=== PATIENT | female | born 1935 | race Caucasian/White ===

== ENCOUNTER → 2016-06-26 | Day surgery (SDC) | payer MEDICARE ==
[~2016-06-26] MED LIST: ACETAMINOPHEN/HYDROcodone 325 MG/5 MG TAB ONE; BIOT5000 PO; FOLI1 PO; IOHEXOL 180 MG/ML 20 ML VIAL (for RAD DIAG) ONE; IPRA0.03; KETOROLAC TROMETHAMINE 30 MG/ML (IVP) VIAL IV PUSH ONE; LACTATED RINGER'S 1000 ML INJ 1,000 ML ONE; LEVO88TA2 PO; METO25TA6 PO; MIDAZOLAM HCL 2 MG/2 ML VIAL ONE; NEXI40CA PO; NITR.4 SL; PROPOFOL 200 MG/20 ML AMP IV ONE; VITA200017 PO; ceFAZolin 2 GM PREMIX 50 ML ONE
--- NOTE | 2016-06-26 10:19 | TN ---
cc: REKHA LEWIS M.D. DATE OF SURGERY: 06/26/2016 PREOPERATIVE DIAGNOSIS Compression fracture T6, subacute. POSTOPERATIVE DIAGNOSIS Compression fracture T6, subacute. PROCEDURE Kyphoplasty T6 and placement of a bone cement spacer. SURGEON Rekha Lewis MD ANESTHESIA TIVA. BLOOD LOSS Minimal. INDICATION This is an 80-year-old female with history of previous kyphoplasty at T7 and did well. The patient began developing increasing pain in early May and studies showed evidence of a compression deformity developing at the T6 level with mild compression. The patient recently was seen having increasing pain despite 4 weeks of conservative care. She presents now for surgical treatment. PROCEDURE The patient was brought to the operating room and given limited sedation. She was rolled to prone position on the radiolucent table. All pressure points were protected. The back was scrubbed with alcohol followed by Hibiclens, followed by Chloraprep and draped sterilely. Antibiotics were given within a 1 hour time window and a time-out was done. AP and lateral radiographic images were used identifying the T6 level and compared to preoperative studies. A time-out was done, antibiotics were given within 1 hour time window. A single balloon approach was utilized on left side. Local anesthesia was utilized followed by a small incision and an awl placed down to the pedicle and into the vertebral body at oblique angle. A 15 mm Kyphon balloon was placed centrally within the vertebral body. This was elevated. On the back table methylmethacrylate was mixed. After approximately 11 minutes the bone cement was injected. We had no extravasation, overall very good vertebral body fill. The cement was allowed to harden, the tubes were removed. Intraoperative x-rays were obtained. The wound was irrigated, anesthetized and closed with 4-0 Vicryl followed by Dermabond. The patient was awoken and taken to the recovery room in satisfactory condition. Rekha Lewis MD [facility] [place]/TLL /9:49 AM /10:12 AM
--- NOTE | 2016-06-26 11:30 | RADRPT ---
EXAM DATE/TIME: 06/26/2016 09:41 [place] COMPARISON: No previous studies available for comparison. INDICATIONS : Thoracic spine T6 kyphoplasty. OR. MEDICAL HISTORY : None. SURGICAL HISTORY : Kyphoplasty. ENCOUNTER: Initial ACUITY: 1 day PAIN SCORE: Non-responsive. LOCATION: Thoracic T6 FINDINGS: There is evidence of previous kyphoplasty at multiple levels in the mid thoracic spine. No cement ext ravasation is seen. CONCLUSION: 1. Postsurgical changes as above. Naveen Baker MD on June 26, 2016 at 11:28 Board Certified Radiologist. This report was verified electronically.
== END | disposition home or self-care (01) ==
LOC: ESDC 08:17
PROVIDERS: ATTEND Orthopaedic Surgery Orthopaedic Surgery of the Spine
DX: S22.050A Wedge compression fracture of T5-T6 vertebra, initial encounter for closed fracture (principal)
CPT/HCPCS: 01936; 22513; 72070; J0690; J1885; J2250; J3010; J7120; Q9965